=== PATIENT | female | born 1955 | race Caucasian/White ===

== ENCOUNTER 2017-07-19 06:45 | Inpatient (IN) | payer SELFPAY ==
[~2017-07-19] VITALS: Ht 160 cm; Wt 43.0 kg
[2017-07-19] VITALS (13 sets, daily range): BP systolic 107–161; BP diastolic 55–85; PULSE 62–149; RESP 16–20; TEMP 96.5–98; O2SAT 91–99
[~2017-07-19 06:45] MED LIST: ALBU6.7H INH; CIPR500T4 PO; PERM5CRE TOP; PRED20 PO
[2017-07-19] MEDS ORDERED: VENTAER INH (07:46)
--- NOTE | 2017-07-19 07:48 | PD ---
HPI Chief Complaint: Cold / Flu Symptoms Time Seen by Provider: 07:45 Travel History International Travel<30 days: No Contact w/Intl Traveler<30days: No Traveled to known affect area: No History of Present Illness HPI This patient complains of cough. She's had it for a solid month. She does have a chronic baseline smoker's cough but this is more pronounced. Sometimes brings up phlegm. No fever. She is a pack-a-day smoker for decades. Does not ever go to a doctor. One time during a coughing fit she strained her left groin area. No injury or fall. Severity is moderate PFSH Past Medical History Heart Rhythm Problems: Yes (PALPITATIONS SINCE AGE 18) Cardiac Catheterization: No Cardiovascular Problems: No High Cholesterol: Yes Congestive Heart Failure: No Diabetes: No Diminished Hearing: No Hypertension: No Musculoskeletal: Yes (ddd) Immunizations Current: No Myocardial Infarction: No Menopausal: Yes Tubal Ligation: Yes Past Surgical History Coronary Artery Bypass Graft: No Tonsillectomy: Yes Family History Family Myocardial Infarction: Yes Social History Alcohol Use: Yes (OCC) Tobacco Use: Yes (1 PPD) Substance Use: No Allergies-Medications (Allergen,Severity, Reaction): Coded Allergies: No Known Allergies (Verified Adverse Reaction, Unknown, 07/19/17) Reported Meds & Prescriptions Reported Meds & Active Scripts Active Ventolin Hfa 18 GM Inh (Albuterol Sulfate) 90 Mcg/Act Aer 2 Puff INH Q4-6H PRN Review of Systems General / Constitutional: No: Fever HENT: No: Headaches Cardiovascular: No: Chest Pain or Discomfort Respiratory: Positive: Cough Physical Exam Narrative GASTROINTESTINAL: Abdomen soft, non-tender, nondistended. Positive bowel sounds. No hepato-splenomegaly, or palpable masses. No guarding. RESPIRATORY: Respiratory effort unlabored, no retractions or use of accessory muscles. Breath sounds show occasional rhonchi but no wheezing Good range of motion of hips. There is some soft tissue left groin tenderness but no obvious hernia or mass or pulsatile lesion Data Data Last Documented VS Vital Signs Date Time Temp Pulse Resp B/P (MAP) Pulse Ox O2 Delivery O2 Flow Rate FiO2 07/19/17 11:05 76 18 155/66 (95) 96 Room Air 07/19/17 06:49 98.0 Orders Orders Chest, Pa & Lat (07/19/17 ) Electrocardiogram (07/19/17 ) Iv Access Insert/Monitor (07/19/17 08:09) Ondansetron Inj (Zofran Inj) (07/19/17 08:15) Morphine Inj (Morphine Inj) (07/19/17 08:15) Complete Blood Count With Diff (07/19/17 08:09) Basic Metabolic Panel (Bmp) (07/19/17 08:09) Ckmb (Isoenzyme) Profile (07/19/17 09:23) Troponin I (07/19/17 09:23) Prothrombin Time / Inr (Pt) (07/19/17 09:23) Act Partial Throm Time (Ptt) (07/19/17 09:23) Ct Pulmonary Angiogram (07/19/17 ) Aspirin (Aspirin) (07/19/17 09:30) Iohexol 350 Inj (Omnipaque 350 Inj) (07/19/17 09:57) Adenosine Inj (Adenocard Inj) (07/19/17 10:00) CKMB (07/19/17 08:38) CKMB% (07/19/17 08:38) Vital Signs (Adult) Q4H (07/19/17 11:10) Activity Bed Rest With Brp (07/19/17 11:10) Diet Heart Healthy (07/19/17 Lunch) Sodium Chlor 0.9% 1000 Ml Inj (Ns 1000 M (07/19/17 11:10) Sodium Chloride 0.9% Flush (Ns Flush) (07/19/17 11:15) Sodium Chloride 0.9% Flush (Ns Flush) (07/19/17 21:00) Acetaminophen (Tylenol) (07/19/17 11:15) Ondansetron Inj (Zofran Inj) (07/19/17 11:15) Basic Metabolic Panel (Bmp) (07/20/17 06:00) Complete Blood Count With Diff (07/20/17 06:00) Creatine Kinase (Cpk) (07/19/17 11:10) Creatine Kinase (Cpk) (07/19/17 17:10) Resp Oxygen Cruz C Titrat 1-4 L (07/19/17 ) Naloxone Inj (Narcan Inj) (07/19/17 11:15) Caddie / Telemetry ANA ROSA.Q8H (07/19/17 11:10) Admit Order (Ed Use Only) (07/19/17 11:18) Labs Laboratory Tests Test 07/19/17 08:38 White Blood Count 6.8 TH/MM3 Red Blood Count 4.41 MIL/MM3 Hemoglobin 14.6 GM/DL Hematocrit 43.1 % Mean Corpuscular Volume 97.8 FL Mean Corpuscular Hemoglobin 33.1 PG Mean Corpuscular Hemoglobin Concent 33.8 % Red Cell Distribution Width 13.0 % Platelet Count 201 TH/MM3 Mean Platelet Volume 8.1 FL Neutrophils (%) (Auto) 74.5 % Lymphocytes (%) (Auto) 18.8 % Monocytes (%) (Auto) 5.6 % Eosinophils (%) (Auto) 0.5 % Basophils (%) (Auto) 0.6 % Neutrophils # (Auto) 5.1 TH/MM3 Lymphocytes # (Auto) 1.3 TH/MM3 Monocytes # (Auto) 0.4 TH/MM3 Eosinophils # (Auto) 0.0 TH/MM3 Basophils # (Auto) 0.0 TH/MM3 CBC Comment DIFF FINAL Differential Comment Prothrombin Time 9.4 SEC Prothromb Time International Ratio 0.9 RATIO Activated Partial Thromboplast Time 23.8 SEC Blood Urea Nitrogen 6 MG/DL Creatinine 0.60 MG/DL Random Glucose 98 MG/DL Calcium Level 9.3 MG/DL Sodium Level 139 MEQ/L Potassium Level 3.8 MEQ/L Chloride Level 105 MEQ/L Carbon Dioxide Level 24.8 MEQ/L Anion Gap 9 MEQ/L Estimat Glomerular Filtration Rate 101 ML/MIN Total Creatine Kinase 114 U/L Creatine Kinase MB 1.6 NG/ML Troponin I LESS THAN 0.02 NG/ML MDM Medical Decision Making Medical Screen Exam Complete: Yes Emergency Medical Condition: Yes Medical Record Reviewed: Yes Differential Diagnosis Chronic bronchitis, pneumonia, URI, asthma, GERD Narrative Course I have reviewed the patient's electronic medical record. I reviewed her PA and lateral chest x-ray which is normal Patient was here in emergency room developed severe substernal chest pressure and started grabbing her chest. Her heart rate jumped up to 140 Extended cardiac monitoring revealed a narrow complex tachycardia which was regular I reviewed multiple EKGs which revealed narrow complex tachycardia I judged to be SVT I gave her 6 g IV adenosine She had fairly rapid conversion to a sinus rhythm At this point she remains in sinus rhythm at 80 CK and troponin are negative CBC normal Metabolic profile normal Given her chest pain and tachycardia and also underwent CT pulmonary angiogram which has ruled out PE I reviewed with the hospitalist will admit given her chest pain and arrhythmia Critical Care Narrative Aggregate critical care time was 33 minutes. Time to perform other separately billable procedures was not included in the critical care time. My time did not include minutes spent treating any other patients simultaneously or on activities that did not directly contribute to the patient's treatment. The services I provided to this patient were to treat and/or prevent clinically significant deterioration that could result in: Cardiac arrhythmia, cardiopulmonary arrest, myocardial damage I provided critical care services requiring my management, as noted below: Chart data review, documentation time, medication orders and management, vital sign assessments/reviewing monitor data, ordering and reviewing lab tests, ordering and interpreting/reviewing x-rays and diagnostic studies, care of the patient and discussion of the patient with the admitting physicians. Diagnosis Primary Impression: Chest pain Qualified Codes: R07.9 - Chest pain, unspecified Additional Impression: SVT (supraventricular tachycardia) Admitting Information Admitting Physician Requests: Admit Scripts Albuterol 18 GM Inh (Ventolin Hfa 18 GM Inh) 90 Mcg/Act Aer 2 PUFF INH Q4-6H Y for SHORTNESS OF BREATH, #1 INHALER 0 Refills Prov: Alex Cameron MD 07/19/17 Alex Cameron MD Jul 19, 2017 07:48
--- NOTE | 2017-07-19 07:49 | RADRPT ---
EXAM DATE/TIME: 07/19/2017 07:17 [facility] COMPARISON: CHEST SINGLE AP, October 13, 2014, 10:42. INDICATIONS : Cough. MEDICAL HISTORY : Chronic Bronchitis SURGICAL HISTORY : None. ENCOUNTER: Initial ACUITY: 1 month PAIN SCORE: 4/10 LOCATION: Bilateral chest FINDINGS: The lungs are clear without infiltrate, nodule, or mass. There is no appreciable pleural effusion fo r technique. Heart and mediastinum are unremarkable. CONCLUSION: No acute cardiopulmonary disease. Ozzy Hollins MD on July 19, 2017 at 7:46 Board Certified Radiologist. This report was verified electronically.
[2017-07-19] MEDS ORDERED: MORPHINE SULFATE 4 MG/ML INJ IV PUSH ONE (08:15)
[2017-07-19] MEDS ORDERED: ONDANSETRON HCL 4 MG/2 ML VIAL IVP ONE (08:15)
[2017-07-19 08:43] LABS: AUTOMATED NEUTROPHIL # 5.1 TH/MM3 (1.8-7.7); BASOPHIL % 0.6 % (0.0-2.0); EOSINOPHIL % 0.5 % (0.0-4.0); HEMATOCRIT 43.1 % (35.0-46.0); HEMOGLOBIN 14.6 GM/DL (11.6-15.3); LYMPH % 18.8 % (9.0-44.0); LYMPHOCYTE # 1.3 TH/MM3 (1.0-4.8); MEAN CELL VOLUME 97.8 FL (80.0-100.0); MEAN CORPUSCULAR HEMOGLOBIN 33.1 PG (27.0-34.0); MEAN CORPUSCULAR HGB CONC 33.8 % (32.0-36.0); MEAN PLATELET VOLUME 8.1 FL (7.0-11.0); MONO % 5.6 % (0.0-8.0); MONOCYTE # 0.4 TH/MM3 (0-0.9); NEUT % 74.5 % (16.0-70.0); PLATELET COUNT 201 TH/MM3 (150-450); RED BLOOD COUNT 4.41 MIL/MM3 (4.00-5.30); WHITE BLOOD COUNT 6.8 TH/MM3 (4.0-11.0)
[2017-07-19 09:12] LABS: CALCIUM 9.3 MG/DL (8.5-10.1)
[2017-07-19 09:13] LABS: BICARBONATE 24.8 MEQ/L (21.0-32.0)
[2017-07-19 09:16] LABS: CREATININE 0.6 MG/DL (0.50-1.00)
[2017-07-19] MEDS ORDERED: ASPIRIN 325 MG TAB PO ONE (09:30)
[2017-07-19 09:56] LABS: INTERNATIONAL NORMALIZED RATIO 0.9 RATIO; PROTHROMBIN TIME - PATIENT 9.4 SEC (9.8-11.6)
[2017-07-19] MEDS ORDERED: IOHEXOL 350 MG/ML 10 ML VIAL (for RAD DIAG) IVCONTRAST ONE (09:57)
[2017-07-19] MEDS ORDERED: ADENOSINE IV SOLN 3 MG/ML 2 ML VIAL IV PUSH ONE (10:00)
[2017-07-19 10:02] LABS: TROPONIN I LESS THAN 0.02 NG/ML (0.02-0.05)
--- NOTE | 2017-07-19 10:09 | RADRPT ---
EXAM DATE/TIME: 07/19/2017 09:43 [facility] COMPARISON: No previous studies available for comparison. INDICATIONS : Shortness of breath, chest pain.Cough. IV CONTRAST: 75 cc Omnipaque 350 (iohexol) IV RADIATION DOSE: 4.38 CTDIvol (mGy) MEDICAL HISTORY : Hypercholesterolemia. Cardiovascular disease Smoker SURGICAL HISTORY : Tonsillectomy. Tubal ligation.Left hip ENCOUNTER: Initial ACUITY: 2 days PAIN SCALE: 4/10 LOCATION: Bilateral chest TECHNIQUE: Volumetric scanning of the chest was performed using a pulmonary embolism protocol MIP images were re constructed. Using automated exposure control and adjustment of the mA and/or kV according to patien t size, radiation dose was kept as low as reasonably achievable to obtain optimal diagnostic quality images. DICOM format image data is available electronically for review and comparison. Follow-up recommendations for detected pulmonary nodules are based at a minimum on nodule size and pa tient risk factors according to Fleischner Society Guidelines. FINDINGS: The lungs are clear without infiltrate, nodule, or mass except for areas of scarring particularly rig ht apex and left lower lobe posteromedially and COPD changes. There is no pleural effusion. No appr eciable pathological adenopathy is seen within the mediastinum. There is no evidence for PE for techn ique. CONCLUSION: There is no evidence for PE for technique. Ozzy Hollins MD on July 19, 2017 at 10:03 Board Certified Radiologist. This report was verified electronically.
[2017-07-19] MEDS: SODIUM CHLOR 0.9% 1000 ML INJ 1,000 ML IV SCH ×2 (11:10→21:06)
[2017-07-19] MEDS ORDERED: SODIUM CHLORIDE 0.9% FLUSH 10 ML FLUSH IV FLUSH PRN (11:15)
[2017-07-19] MEDS ORDERED: NALOXONE HCL 0.4 MG/ML AMP IV PUSH PRN (11:15)
[2017-07-19] MEDS ORDERED: ACETAMINOPHEN 325 MG TAB PO PRN (12:00)
--- NOTE | 2017-07-19 14:06 | HHI.HP ---
[facility] No Primary Care Physician Admission Diagnosis chest pain, SVT Diagnoses: (1) Paroxysmal supraventricular tachycardia Diagnosis: Principal (2) Cough Diagnosis: Principal Travel History International Travel<30 Days: No Contact w/Intl Traveler <30 Da: No Traveled to Known Affected Are: No History of Present Illness Written by Alex Goldsmith, acting as scribe for Dr. Claros on 07/19/17 at 13: 53. 62-year-old female with known history of chronic tobacco use, intermittent heart racing who presented to hospital because of one month history of uncontrolled and relentless cough. Patient states that she is tried everything from Robitussin, Mucinex, Delsym, generic cough medicines, antihistamines without any significant response. She states that she is had a rather irritating cough that she has had 2 leave work. There has been episodes where she coughs up phlegm and vomits. She states that she does feel warm but she has not taken her temperature. She has had chills with cold sweats. Patient indicates that she has coughed so much that she is experiencing pain in her right lower abdomen. It is worse whenever she tries to stand up or move and it is worse whenever she coughs. Because she could not get rid of the cough she came to emergency department for evaluation. Patient had workup done and at the end the workup she started feeling pressure on her chest. Patient's heart rate jumped to 140. ER physician noticed that did be narrow complex tachycardia in the patient was given 6 g of IV adenosine with rapid conversion to sinus rhythm. Patient indicates that she has episodes of this in the last time that she had it was 2 weeks ago. She states that usually she lays down in the discomfort goes away. There is been times where she has checked her pulse during these episodes and it was as high as 200. She indicates that is been taking longer for the discomfort go away. When the heart rate is controlled, the patient's chest pain is completely resolved. Review of Systems Constitutional: COMPLAINS OF: Weight loss (7 pounds in 2 weeks) Respiratory: COMPLAINS OF: Cough Cardiovascular: COMPLAINS OF: Chest pain, Palpitations Except as stated in HPI: all other systems reviewed are Neg Past Family Social History Past Medical History Chronic tobacco use Intermittent heart racing Past Surgical History Carpal tunnel Tubal ligation Left leg surgery Reported Medications Reported Meds & Active Scripts Active Ventolin Hfa 18 GM Inh (Albuterol Sulfate) 90 Mcg/Act Aer 2 Puff INH Q4-6H PRN Allergies: Coded Allergies: No Known Allergies (Verified Allergy, Unknown, 07/19/17) Family History Reviewed and patient states that mother had emphysema. She does not know what her father's history is. Both her mother and father are Social History Patient has been smoking 1 pack a cigarettes a day since she was 13 years old. Patient is alcohol occasionally. Denies any illicit drugs Physical Exam Vital Signs Vital Signs Date Time Temp Pulse Resp B/P (MAP) Pulse Ox O2 Delivery O2 Flow Rate FiO2 07/19/17 12:16 07/19/17 12:00 96.8 81 20 125/70 (88) 96 07/19/17 11:05 76 18 155/66 (95) 96 Room Air 07/19/17 10:14 85 16 142/84 (103) 97 Room Air 07/19/17 09:19 149 20 131/85 (100) 96 Room Air 07/19/17 06:49 98.0 84 18 161/73 (102) 96 Physical Exam GENERAL: Well-developed, cachectic, patient looks much older than she actually is. In no acute distress. alert and orientated HEENT: Head is normocephalic without any lesions or masses noted. Facial features are symmetric. Eyes: Pupils equal round reactive to light. Extraocular muscles are intact. Conjunctivae were clear. Oropharyngeal: Pharynx without any erythema edema. Tongue is midline without deviation. Buccal mucosa is moist without any masses or lesions NECK: Supple without any masses. Trachea midline no deviation. No JVD, no bruits are appreciated CARDIAC: Regular rhythm, regular rate. S1/S2 are heard. No murmurs gallops or rubs. LUNGS: Forced expiratory wheeze, no rhonchi or rales. No use of accessory muscles on inspiration or expiration. ABDOMEN: Soft, pain noted on direct palpation of left inguinal region. Nondistended. Bowel sounds heard in all 4 quadrants. No organomegaly or masses. Negative rebound, negative guarding EXTREMITIES: No edema, pulses are equal bilaterally. No cyanosis or clubbing NEUROLOGY: Mood and affect appear appropriate. Cranial nerves II through XII grossly intact. Muscle strength 5/5 in upper and lower extremities bilaterally. Deep tendon reflexes are 2+ in upper and lower extremities bilaterally. Laboratory Laboratory Tests Test 07/19/17 08:38 07/19/17 12:05 White Blood Count 6.8 Red Blood Count 4.41 Hemoglobin 14.6 Hematocrit 43.1 Mean Corpuscular Volume 97.8 Mean Corpuscular Hemoglobin 33.1 Mean Corpuscular Hemoglobin Concent 33.8 Red Cell Distribution Width 13.0 Platelet Count 201 Mean Platelet Volume 8.1 Neutrophils (%) (Auto) 74.5 Lymphocytes (%) (Auto) 18.8 Monocytes (%) (Auto) 5.6 Eosinophils (%) (Auto) 0.5 Basophils (%) (Auto) 0.6 Neutrophils # (Auto) 5.1 Lymphocytes # (Auto) 1.3 Monocytes # (Auto) 0.4 Eosinophils # (Auto) 0.0 Basophils # (Auto) 0.0 CBC Comment DIFF FINAL Differential Comment Prothrombin Time 9.4 Prothromb Time International Ratio 0.9 Activated Partial Thromboplast Time 23.8 Blood Urea Nitrogen 6 Creatinine 0.60 Random Glucose 98 Calcium Level 9.3 Sodium Level 139 Potassium Level 3.8 Chloride Level 105 Carbon Dioxide Level 24.8 Anion Gap 9 Estimat Glomerular Filtration Rate 101 Total Creatine Kinase 114 110 Creatine Kinase MB 1.6 Troponin I LESS THAN 0.02 Result Diagram: 07/19/17 0838 07/19/17 0838 Imaging Last Impressions Chest X-Ray 07/19/17 0000 Signed Impressions: Service Date/Time: Wednesday, July 19, 2017 07:17 - CONCLUSION: No acute cardiopulmonary disease. Ozzy Hollins MD CT Angiography 07/19/17 0000 Signed Impressions: Service Date/Time: Wednesday, July 19, 2017 09:43 - CONCLUSION: There is no evidence for PE for technique. Ozzy Hollins MD Capashutoshi VTE Risk Assessment Jessica VTE Risk Assessment: Mod/High Risk (score >= 2) Caprini Risk Assessment Model Point Value = 1 Point Value = 2 Point Value = 3 Point Value = 5 Age 41-60 Minor surgery BMI > 25 kg/m2 Swollen legs Varicose veins or History of unexplained or recurrent spontaneous Oral contraceptives or hormone replacement Sepsis (< 1 month) Serious lung disease, including pneumonia (< 1 month) Abnormal pulmonary function Acute myocardial infarction Congestive heart failure (< 1 month) History of inflammatory bowel disease Medical patient at bed rest Age 61-74 Arthroscopic surgery Major open surgery (> 45 min) Laparoscopic surgery (> 45 min) Malignancy Confined to bed (> 72 hours) Immobilizing plaster cast Central venous access Age >= 75 History of VTE Family history of VTE Factor V Leiden Prothrombin [id number] Lupus anticoagulant Anticardiolipin antibodies Elevated serum homocysteine Heparin-induced thrombocytopenia Other congenital or acquired thrombophilia Stroke (< 1 month) Elective arthroplasty Hip, pelvis, or leg fracture Acute spinal cord injury (< 1 month) Prophylaxis Regimen Total Risk Factor Score Risk Level Prophylaxis Regimen 0-1 Low Early ambulation 2 Moderate Order ONE of the following: *Sequential Compression Device (SCD) *Heparin 5000 units SQ BID 3-4 Higher Order ONE of the following medications: *Heparin 5000 units SQ TID *Enoxaparin/Lovenox 40 mg SQ daily (WT < 150 kg, CrCl > 30 mL/min) *Enoxaparin/Lovenox 30 mg SQ daily (WT < 150 kg, CrCl > 10-29 mL/min) *Enoxaparin/Lovenox 30 mg SQ BID (WT < 150 kg, CrCl > 30 mL/min) AND/OR *Sequential Compression Device (SCD) 5 or more Highest Order ONE of the following medications: *Heparin 5000 units SQ TID (Preferred with Epidurals) *Enoxaparin/Lovenox 40 mg SQ daily (WT < 150 kg, CrCl > 30 mL/min) *Enoxaparin/Lovenox 30 mg SQ daily (WT < 150 kg, CrCl > 10-29 mL/min) *Enoxaparin/Lovenox 30 mg SQ BID (WT < 150 kg, CrCl > 30 mL/min) AND *Sequential Compression Device (SCD) Assessment and Plan Assessment and Plan Paroxysmal supraventricular tachycardia Status post correction with adenosine 6 g IV in the emergency department Continue monitor telemetry Obtain echocardiogram Chronic cough Likely secondary to chronic bronchitis in a patient with severe emphysema Chest x-ray and CT do not indicate any acute abnormality. Does show COPD changes Start Augmentin Start prednisone Start Robitussin-AC, Tessalon Left lower abdominal pain/muscle strain Continue pain control We'll obtain noncontrast CT the abdomen and pelvis DVT prevention sequential compression devices Physician Certification 2 Midnight Certification Type: Admission for Inpatient Services Order for Inpatient Services The services are ordered in accordance with Medicare regulations or non- Medicare payer requirements, as applicable. In the case of services not specified as inpatient-only, they are appropriately provided as inpatient services in accordance with the 2-midnight benchmark. Estimated LOS (days): 2 days is the estimated time the patient will need to remain in the hospital, assuming treatment plan goals are met and no additional complications. Post-Hospital Plan: Not yet determined Medical Decision Making Impression and Plan This note was transcribed by carlos [[email or web address]]. I, Dr. Kayli Claros personally performed the history, physical exam, and medical decision making; and confirmed the accuracy of the information in the transcribed note. I did examine and perform H&P as above. Authenticated by Dr. Kayli Claros on 07/19/17 at 14:37. Alex Goldsmith Jul 19, 2017 14:06 Kayli Claros MD Jul 19, 2017 14:38
--- NOTE | 2017-07-19 14:12 | EKG ---
Date Performed: 07/19/2017 Time Performed: 08:00:41 PTAGE: 62 years EKG: PROBABLE SINUS TACHYCARDIA WITH FIRST DEGREE AV BLOCK Compared to previous tracing, heart r ate is higher. Would attempt repeat EKG at a slower heart rate to exclude atrial dysrhymia. MODERATE ST DEPRESSION ABNORMAL ECG PREVIOUS TRACING : 05/08/2009 00.28.36 DOCTOR: Néstor Souza Interpretating Date/Time 07/19/2017 14:10:55
[2017-07-19] MEDS ORDERED: ACETAMINOPHEN/HYDROcodone 325 MG/5 MG TAB PO PRN (14:15)
[2017-07-19] MEDS ORDERED: BENZONATATE 100 MG CAP PO PRN (14:15)
[2017-07-19] MEDS ORDERED: DIATRIZOATE MEGLUM/DIATRIZOATE SOD 9 ML CUP PO ONE (14:30)
[2017-07-19] MEDS: NICOTINE 21 MG/24 HR PATCH T-DERMAL SCH (15:51)
[2017-07-19] MEDS: AMOXICILLIN/CLAVULANATE K 875 MG TAB PO SCH ×2 (15:51→21:03)
[2017-07-19] MEDS: oxyCODONE/ACETAMINOPHEN 7.5 MG/325 MG TAB PO PRN ×2 (16:50→23:55)
[2017-07-19] MEDS: predniSONE 20 MG TAB PO SCH (16:50)
[2017-07-19] MEDS: ONDANSETRON HCL 4 MG/2 ML VIAL IVP PRN ×2 (16:52→23:55)
--- NOTE | 2017-07-19 17:39 | RADRPT ---
EXAM DATE/TIME: 07/19/2017 17:24 [facility] COMPARISON: No previous studies available for comparison. INDICATIONS : Left lower abdominal pain. ORAL CONTRAST: Prescribed oral contrast ingested. RADIATION DOSE: 5.29 CTDIvol (mGy) MEDICAL HISTORY : Hypercholesterolemia. Cardiovascular disease Smoker SURGICAL HISTORY : Tonsillectomy. Tubal ligation.Left hip ENCOUNTER: Initial ACUITY: 1 day PAIN SCALE: 5/10 LOCATION: Left lower quadrant TECHNIQUE: Volumetric scanning of the abdomen and pelvis was performed. Using automated exposure control and ad justment of the mA and/or kV according to patient size, radiation dose was kept as low as reasonably achievable to obtain optimal diagnostic quality images. DICOM format image data is available electro nically for review and comparison. FINDINGS: LOWER LUNGS: The visualized lower lungs are clear. LIVER: Homogeneous density. There is no dilation of the biliary tree. No calcified gallstones. 1 cm low-de nsity lesion lower right lobe. SPLEEN: Normal size without lesion. PANCREAS: Within normal limits. KIDNEYS: Normal in size and shape. There is no mass, stone, or hydronephrosis. ADRENAL GLANDS: Within normal limits. VASCULAR: There is no aortic aneurysm. Atherosclerotic disease. BOWEL/MESENTERY: Stomach is filled with debris and contrast. Diverticulosis of the sigmoid colon without diverticuliti s. There is no free intraperitoneal air or fluid. ABDOMINAL WALL: Within normal limits. RETROPERITONEUM: There is no lymphadenopathy. BLADDER: No wall thickening or mass. REPRODUCTIVE: Within normal limits. INGUINAL: There is no lymphadenopathy or hernia. MUSCULOSKELETAL: Within normal limits for patient age. CONCLUSION: 1. Diverticulosis without diverticulitis. 2. Hepatic low-density, likely benign. Fabiano Ribeiro MD on July 19, 2017 at 17:34 Board Certified Radiologist. This report was verified electronically.
[2017-07-19] MEDS: SODIUM CHLORIDE 0.9% FLUSH 10 ML FLUSH IV FLUSH SCH (20:57)
[2017-07-19] MEDS: guaiFENesin/CODEINE SYRUP 200 MG/20 MG/10 ML CUP PO PRN (23:50)
[2017-07-20] VITALS (10 sets, daily range): BP systolic 99–115; BP diastolic 55–68; PULSE 63–83; RESP 18–22; TEMP 96.3–97.3; O2SAT 92–95
[2017-07-20] MEDS: SODIUM CHLOR 0.9% 1000 ML INJ 1,000 ML IV SCH (06:36)
[2017-07-20] MEDS: oxyCODONE/ACETAMINOPHEN 7.5 MG/325 MG TAB PO PRN ×2 (06:36→16:49)
[2017-07-20] MEDS: guaiFENesin/CODEINE SYRUP 200 MG/20 MG/10 ML CUP PO PRN ×3 (06:36→22:48)
[2017-07-20 07:39] LABS: AUTOMATED NEUTROPHIL # 4.5 TH/MM3 (1.8-7.7); BASOPHIL % 0.3 % (0.0-2.0); EOSINOPHIL % 0.7 % (0.0-4.0); HEMATOCRIT 35.8 % (35.0-46.0); HEMOGLOBIN 11.8 GM/DL (11.6-15.3); LYMPH % 22.8 % (9.0-44.0); LYMPHOCYTE # 1.4 TH/MM3 (1.0-4.8); MEAN CELL VOLUME 99.2 FL (80.0-100.0); MEAN CORPUSCULAR HEMOGLOBIN 32.6 PG (27.0-34.0); MEAN CORPUSCULAR HGB CONC 32.9 % (32.0-36.0); MEAN PLATELET VOLUME 9.1 FL (7.0-11.0); MONO % 6.3 % (0.0-8.0); MONOCYTE # 0.4 TH/MM3 (0-0.9); NEUT % 69.9 % (16.0-70.0); PLATELET COUNT 187 TH/MM3 (150-450); RED BLOOD COUNT 3.61 MIL/MM3 (4.00-5.30); RED CELL DISTRIBUTION WIDTH 12.9 % (11.6-17.2); WHITE BLOOD COUNT 6.3 TH/MM3 (4.0-11.0)
[2017-07-20] MEDS: AMOXICILLIN/CLAVULANATE K 875 MG TAB PO SCH ×2 (07:55→21:42)
[2017-07-20] MEDS: predniSONE 20 MG TAB PO SCH ×3 (07:55→18:04)
[2017-07-20] MEDS: REMOVE OLD PATCH T-DERMAL SCH (07:56)
[2017-07-20] MEDS: NICOTINE 21 MG/24 HR PATCH T-DERMAL SCH (07:56)
[2017-07-20 08:07] LABS: BICARBONATE 26.3 MEQ/L (21.0-32.0); CALCIUM 8.1 MG/DL (8.5-10.1); CREATININE 0.53 MG/DL (0.50-1.00)
--- NOTE | 2017-07-20 09:12 | HHI.PR ---
Subjective Remarks The patient is a 62-year-old female with known chronic tobaccoism who has presented with bronchitis and had an episode of SVT while in the emergency room while coughing. Overnight she appears to have improved and her breathing however she still has fits of coughing. No further arrhythmias on telemetry. Abdominal pain is likely musculoskeletal as are no findings on imaging Objective Vitals Vital Signs Date Time Temp Pulse Resp B/P (MAP) Pulse Ox O2 Delivery O2 Flow Rate FiO2 07/20/17 08:00 96.6 64 20 115/68 (84) 94 07/20/17 07:57 18 07/20/17 04:00 96.3 70 18 110/55 (73) 93 07/20/17 00:00 96.8 75 18 99/55 (70) 92 07/19/17 20:00 96.5 64 18 107/55 (72) 91 07/19/17 19:57 69 07/19/17 19:25 93 21 07/19/17 18:24 65 17 110/72 (85) 07/19/17 18:00 62 117/62 (80) 99 07/19/17 16:32 72 07/19/17 16:00 97.3 67 20 122/70 (87) 96 07/19/17 13:55 96 21 07/19/17 12:16 07/19/17 12:00 96.8 81 20 125/70 (88) 96 07/19/17 11:05 76 18 155/66 (95) 96 Room Air 07/19/17 10:14 85 16 142/84 (103) 97 Room Air 07/19/17 09:19 149 20 131/85 (100) 96 Room Air I/O 07/19/17 07/19/17 07/19/17 07/20/17 07/20/17 07/20/17 07:00 15:00 23:00 07:00 15:00 23:00 Intake Total 120 ml 1155 ml 1659 ml Balance 120 ml 1155 ml 1659 ml Intake Oral 120 ml 500 ml 720 ml IV Total 655 ml 939 ml # Voids 5 4 Result Diagram: 07/20/17 0635 07/20/17 0635 Objective Remarks GENERAL: This is a thin female who appears much older than stated age, well- developed patient, in no apparent distress. CARDIOVASCULAR: Regular rate and rhythm without murmurs, gallops, or rubs. RESPIRATORY: Clear to auscultation. Breath sounds equal bilaterally. No wheezes , rales, or rhonchi. GASTROINTESTINAL: Abdomen soft, non-tender, nondistended. Normal active bowel sounds MUSCULOSKELETAL: Extremities without clubbing, cyanosis, or edema. NEURO: Alert & Oriented x4 to person, place, time, situation. Moves all ext x4 A/P Problem List: (1) Paroxysmal supraventricular tachycardia ICD Code: I47.1 - Supraventricular tachycardia Plan: No further episodes on telemetry Echocardiogram pending (2) Cough ICD Code: R05 - Cough Plan: Likely secondary to bronchitis, continue with supportive care, bronchodilators by nebulizer (3) Acute bronchitis ICD Code: J20.9 - Acute bronchitis, unspecified Plan: Wean steroids, nebulized bronchodilators, continue Augmentin Patient will need PFTs as an outpatient On smoking cessation encouraged Discharge Planning Likely discharge in a.m. pending echo and improvement of symptoms Kayli Claros MD Jul 20, 2017 09:12
[2017-07-20] MEDS ORDERED: RESP: ALBUTEROL 2.5 MG/IPRATROPIUM 0.5 MG NEB (PRN) NEB (09:15)
[2017-07-20] MEDS: ONDANSETRON HCL 4 MG/2 ML VIAL IVP PRN ×3 (09:45→22:48)
[2017-07-20] MEDS: SODIUM CHLORIDE 0.9% FLUSH 10 ML FLUSH IV FLUSH SCH ×2 (09:48→21:42)
[2017-07-20] MEDS ORDERED: INFLUENZA VIRUS VACCINE (QUADRIVALENT) 0.5 ML SYR IM ONE (10:00)
[2017-07-20] MEDS ORDERED: PNEUMOCOCCAL POLYVALENT INJ 25 MCG/0.5 ML SYR IM ONE (10:00)
--- NOTE | 2017-07-20 12:21 | EKG ---
Date Performed: 07/19/2017 Time Performed: 10:08:00 PTAGE: 62 years EKG: SINUS TACHYCARDIA POSSIBLE RIGHT ATRIAL ENLARGEMENT BORDERLINE RIGHT AXIS DEVIATION ABNORMA L RHYTHM ECG Since PREVIOUS TRACING , no significant change noted PREVIOUS TRACIN07/19/2017 08.00 DOCTOR: Néstor Souza Interpretating Date/Time 07/20/2017 12:21:13
[2017-07-20] MEDS: RESP: ALBUTEROL 2.5 MG/IPRATROPIUM 0.5 MG NEB (SCH) NEB ×2 (13:16→19:31)
[2017-07-20] MEDS ORDERED: BENZOCAINE 6 MG/MENTHOL 10 MG LOZENGE BUCCAL PRN (23:00)
[2017-07-20] MEDS ORDERED: DOCUSATE SODIUM 100 MG CAP PO ONE (23:00)
[2017-07-21] VITALS: BP 116/65; PULSE 79; RESP 17; TEMP 97.6; O2SAT 94
[2017-07-21 04:00] VITALS: BP 121/71; PULSE 81; RESP 18; TEMP 97.7; O2SAT 96
[2017-07-21] MEDS: RESP: ALBUTEROL 2.5 MG/IPRATROPIUM 0.5 MG NEB (SCH) NEB (07:25)
[2017-07-21] MEDS: oxyCODONE/ACETAMINOPHEN 7.5 MG/325 MG TAB PO PRN (07:31)
[2017-07-21 08:00] VITALS: BP 125/63; PULSE 75; RESP 12; TEMP 95.7; O2SAT 95
[2017-07-21] MEDS: SODIUM CHLORIDE 0.9% FLUSH 10 ML FLUSH IV FLUSH SCH (08:02)
[2017-07-21] MEDS: AMOXICILLIN/CLAVULANATE K 875 MG TAB PO SCH (08:02)
[2017-07-21] MEDS: predniSONE 20 MG TAB PO SCH (08:02)
[2017-07-21] MEDS ORDERED: DOCUSATE SODIUM 100 MG CAP PO SCH (09:00)
--- NOTE | 2017-07-21 09:00 | ECHRPT ---
Indication: SVT CONCLUSIONS Normal left ventricular size. Wall thickness is normal. The left ventricular systolic function is normal with an estimated ejection fraction in the range of 55-60%. Trace mitral valve regurgitation. A small left sided pleural effusion is noted. BP: / HR: Rhythm: MEASUREMENTS (Male / Female) Normal Values Technical Quality:Good 2D ECHO LV Diastolic Diameter PLAX 4.0 cm 4.2 - 5.9 / 3.9 - 5.3 cm LV Systolic Diameter PLAX 2.8 cm IVS Diastolic Thickness 0.7 cm 0.6 - 1.0 / 0.6 - 0.9 cm LVPW Diastolic Thickness 0.7 cm 0.6 - 1.0 / 0.6 - 0.9 cm LV Relative Wall Thickness 0.3 LVOT Diameter 1.5 cm LA Systolic Diameter LX 2.3 cm 3.0 - 4.0 / 2.7 - 3.8 cm M-MODE Aortic Root Diameter MM 2.1 cm AV Cusp Separation MM 1.5 cm DOPPLER AV Peak Velocity 137.0 cm/s AV Peak Gradient 7.5 mmHg LVOT Peak Velocity 112.0 cm/s LVOT Peak Gradient 5.0 mmHg AV Area Cont Eq pk 1.4 cm MV Area PHT 3.1 cm Mitral E Point Velocity 96.3 cm/s Mitral A Point Velocity 67.6 cm/s Mitral E to A Ratio 1.4 LV E' Lateral Velocity 10.9 cm/s Mitral E to LV E' Lateral Ratio 8.8 LV E' Septal Velocity 8.8 cm/s Mitral E to LV E' Septal Ratio 11.0 TR Peak Velocity 261.0 cm/s TR Peak Gradient 27.2 mmHg Right Atrial Pressure 10.0 mmHg Pulmonary Artery Systolic Pressu 37.2 mmHg Right Ventricular Systolic Press 37.2 mmHg PV Peak Velocity 99.1 cm/s PV Peak Gradient 3.9 mmHg FINDINGS LEFT VENTRICLE Normal left ventricular size. Wall thickness is normal. The left ventricular systolic function is normal with an estimated ejection fraction in the range of 55-60%. RIGHT VENTRICLE Normal right ventricular size and systolic function. LEFT ATRIUM The left atrial size is normal. RIGHT ATRIUM The right atrial size is normal. ATRIAL SEPTUM Normal atrial septal thickness without atrial level shunting by limited color doppler interrogation. AORTA The aortic root and proximal ascending aorta are normal in size on limited imaging. MITRAL VALVE Trace mitral valve regurgitation. AORTIC VALVE Trileaflet aortic valve. No aortic valve stenosis or regurgitation. TRICUSPID VALVE Structurally normal tricuspid valve. No tricuspid valve stenosis or regurgitation. PULMONARY VALVE No pulmonary valve regurgitation or stenosis. VESSELS The inferior vena cava is normal in size. PERICARDIUM A small left sided pleural effusion is noted. Néstor Souza MD (Electronically Signed) Final Date:21 July 2017 08:58
[2017-07-21] MEDS: NICOTINE 21 MG/24 HR PATCH T-DERMAL SCH (09:09)
[2017-07-21] MEDS: REMOVE OLD PATCH T-DERMAL SCH (09:09)
--- NOTE | 2017-07-21 09:38 | HHI.DS ---
Discharge Summary Admission Date Jul 19, 2017 at 11:20 Discharge Date: Jul 21, 2017 Admitting Diagnosis chest pain, SVT (1) Paroxysmal supraventricular tachycardia ICD Code: I47.1 - Supraventricular tachycardia (2) Cough ICD Code: R05 - Cough (3) Acute bronchitis ICD Code: J20.9 - Acute bronchitis, unspecified Procedures none Brief History - From Admission Written by Alex Goldsmith, acting as scribe for Dr. Claros on 07/19/17 at 13: 53. 62-year-old female with known history of chronic tobacco use, intermittent heart racing who presented to hospital because of one month history of uncontrolled and relentless cough. Patient states that she is tried everything from Robitussin, Mucinex, Delsym, generic cough medicines, antihistamines without any significant response. She states that she is had a rather irritating cough that she has had 2 leave work. There has been episodes where she coughs up phlegm and vomits. She states that she does feel warm but she has not taken her temperature. She has had chills with cold sweats. Patient indicates that she has coughed so much that she is experiencing pain in her right lower abdomen. It is worse whenever she tries to stand up or move and it is worse whenever she coughs. Because she could not get rid of the cough she came to emergency department for evaluation. Patient had workup done and at the end the workup she started feeling pressure on her chest. Patient's heart rate jumped to 140. ER physician noticed that did be narrow complex tachycardia in the patient was given 6 g of IV adenosine with rapid conversion to sinus rhythm. Patient indicates that she has episodes of this in the last time that she had it was 2 weeks ago. She states that usually she lays down in the discomfort goes away. There is been times where she has checked her pulse during these episodes and it was as high as 200. She indicates that is been taking longer for the discomfort go away. When the heart rate is controlled, the patient's chest pain is completely resolved. CBC/BMP: 07/20/17 0635 07/20/17 0635 Significant Findings Laboratory Tests Test 07/19/17 08:38 07/19/17 12:05 07/19/17 17:55 07/20/17 06:35 Neutrophils (%) (Auto) 74.5 % (16.0-70.0) Prothrombin Time 9.4 SEC (9.8-11.6) Activated Partial Thromboplast Time 23.8 SEC (24.3-30.1) Blood Urea Nitrogen 6 MG/DL (7-18) Troponin I LESS THAN 0.02 NG/ML Red Blood Count 3.61 MIL/MM3 (4.00-5.30) Calcium Level 8.1 MG/DL (8.5-10.1) Imaging Last Impressions Chest X-Ray 07/19/17 0000 Signed Impressions: Service Date/Time: Wednesday, July 19, 2017 07:17 - CONCLUSION: No acute cardiopulmonary disease. Ozzy Hollins MD CT Angiography 07/19/17 0000 Signed Impressions: Service Date/Time: Wednesday, July 19, 2017 09:43 - CONCLUSION: There is no evidence for PE for technique. Ozzy Hollins MD Abdomen/Pelvis CT 07/19/17 0000 Signed Impressions: Service Date/Time: Wednesday, July 19, 2017 17:24 - CONCLUSION: 1. Diverticulosis without diverticulitis. 2. Hepatic low-density, likely benign. Fabiano Ribeiro MD PE at Discharge GENERAL: This is a thin female who appears much older than stated age, well- developed patient, in no apparent distress. CARDIOVASCULAR: Regular rate and rhythm without murmurs, gallops, or rubs. RESPIRATORY: Clear to auscultation. Breath sounds equal bilaterally. No wheezes , rales, or rhonchi. GASTROINTESTINAL: Abdomen soft, non-tender, nondistended. Normal active bowel sounds MUSCULOSKELETAL: Extremities without clubbing, cyanosis, or edema. NEURO: Alert & Oriented x4 to person, place, time, situation. Moves all ext x4 Pt update on day of discharge Feels better. No events overnight. No palpitations, chest pain, sob, n/v/d/c. Denies fever or chills. Hospital Course (1) Paroxysmal supraventricular tachycardia ICD Code: I47.1 - Supraventricular tachycardia Plan: No further episodes on telemetry Echocardiogram (2) Cough ICD Code: R05 - Cough Plan: Likely secondary to bronchitis, continue with supportive care, bronchodilators by nebulizer (3) Acute bronchitis ICD Code: J20.9 - Acute bronchitis, unspecified Plan: Wean steroids, nebulized bronchodilators, continue Augmentin Patient will need PFTs as an outpatient On smoking cessation encouraged Pt Condition on Discharge: Stable Discharge Disposition: Discharge Home Discharge Time: > 30 minutes Discharge Instructions DIET: Follow Instructions for: Heart Healthy Diet Activities you can perform: Regular-No Restrictions Follow up Referrals: Cardiology - 1 Week PCP Follow-up - 2-3 Days New Medications: Lactobacillus Acidophilus (Lactinex) 1 Chew 1 TAB CHEW BID for Nutritional Supplement, #30 TAB 0 Refills Amoxicillin-Clavulanate (Amoxicillin-Clavulanate) 875-125 mg Tab 875 MG PO Q12HR for infection , #10 TAB not for use in CrCl <30 mL/minute Benzonatate (Tessalon Perles) 100 Mg Cap 100 MG PO TID PRN for cougn not controlled with Jluis, #20 CAP Nicotine (Eq Nicotine) 21 Mg/24 Hour Dis 1 PATCH T-DERMAL DAILY for s,oking cessation , #30 PATCH Prednisone (Prednisone) 20 Mg Tab 20 MG PO BID for copd , #6 TAB [Benzocaine-Menthol Nicole] () 1 LOZENGE LOZG 1 LOZENGE BUCCAL UNSCH PRN for jeanette throat, #10 Continued Medications: Albuterol 18 GM Inh (Ventolin Hfa 18 GM Inh) 90 Mcg/Act Aer 2 PUFF INH Q4-6H PRN for SHORTNESS OF BREATH, #1 INHALER 0 Refills Jennifer Yang MD Jul 21, 2017 09:38
[2017-07-21 09:40] VITALS: RESP 18
[2017-07-21] MEDS ORDERED: BENZ100 PO (09:43)
[2017-07-21] MEDS ORDERED: AMOX875T2 PO (09:43)
[2017-07-21] MEDS ORDERED: PRED20 PO (09:43)
[2017-07-21] MEDS ORDERED: NICO21DI25 T-DERMAL (09:43)
[2017-07-21] MEDS ORDERED: LACTCHW3 CHEW (09:43)
[2017-07-21] MEDS ORDERED: [UNRECOGNIZED DRUG - OTHER] BUCCAL (09:44)
== END 2017-07-21 12:09 | disposition home or self-care (01) | DRG 202 ==
LOC: PHED 06:45 → PHEDA 11:20 → PH3A 12:08
PROVIDERS: ADMIT Hospitalist; ATTEND Hospitalist
DX: J20.9 Acute bronchitis, unspecified (principal); J44.0 Chronic obstructive pulmonary disease with (acute) lower respiratory infection; I47.1 Supraventricular tachycardia; Z68.1 Body mass index [BMI] 19.9 or less, adult; R63.4 Abnormal weight loss; S39.011A Strain of muscle, fascia and tendon of abdomen, initial encounter; F17.210 Nicotine dependence, cigarettes, uncomplicated; Z23 Encounter for immunization
CPT/HCPCS: 71046; 71275; 74176; 80048; 82550; 82552; 84484; 85025; 85610; 85730; 90471; 90686; 90732; 93005; 93306; 94640; 94664; 96374; 96375; G0008; G0009; J0153; J2270; J2405; J7030; J7512; Q2038; Q9963; Q9967

== ENCOUNTER 2017-11-29 17:58 | Emergency (ER) | payer SELFPAY ==
[~2017-11-29 17:58] MED LIST changes: -ALBU6.7H INH; +AMOX875T2 PO; +BENZ100 PO; -CIPR500T4 PO; +LACTCHW3 CHEW; +NICO21DI25 T-DERMAL; -PERM5CRE TOP; +VENTAER INH; +[UNRECOGNIZED DRUG - OTHER] BUCCAL
[2017-11-29 18:01] VITALS: BP 147/69; PULSE 82; RESP 20; TEMP 98; O2SAT 96
[2017-11-29 18:17] VITALS: O2SAT 97
[2017-11-29 18:30] LABS: AUTOMATED NEUTROPHIL # 6.2 TH/MM3 (1.8-7.7); BASOPHIL % 0.5 % (0.0-2.0); EOSINOPHIL % 0.1 % (0.0-4.0); HEMATOCRIT 35.8 % (35.0-46.0); HEMOGLOBIN 12.2 GM/DL (11.6-15.3); LYMPH % 12.2 % (9.0-44.0); LYMPHOCYTE # 0.9 TH/MM3 (1.0-4.8); MEAN CELL VOLUME 98.3 FL (80.0-100.0); MEAN CORPUSCULAR HEMOGLOBIN 33.4 PG (27.0-34.0); MEAN CORPUSCULAR HGB CONC 33.9 % (32.0-36.0); MONO % 3.4 % (0.0-8.0); MONOCYTE # 0.3 TH/MM3 (0-0.9); NEUT % 83.8 % (16.0-70.0); PLATELET COUNT 219 TH/MM3 (150-450); RED BLOOD COUNT 3.64 MIL/MM3 (4.00-5.30); RED CELL DISTRIBUTION WIDTH 12.8 % (11.6-17.2); WHITE BLOOD COUNT 7.4 TH/MM3 (4.0-11.0)
[2017-11-29 18:42] LABS: CHLORIDE 98 MEQ/L (98-107); SODIUM (NA) 134 MEQ/L (136-145)
[2017-11-29 18:45] LABS: CALCIUM 9.2 MG/DL (8.5-10.1)
[2017-11-29 18:46] LABS: ALBUMIN 3.9 GM/DL (3.4-5.0); BICARBONATE 26.3 MEQ/L (21.0-32.0); BLOOD UREA NITROGEN 12 MG/DL (7-18); GLUCOSE,RANDOM 109 MG/DL (74-106)
[2017-11-29 18:49] LABS: ALT (GPT) 21 U/L (10-53); AST (GOT) 17 U/L (15-37); CREATININE 0.59 MG/DL (0.50-1.00); GLOMERULAR FILTRATION RATE 103 ML/MIN (>89)
[2017-11-29 18:50] LABS: TOTAL BILIRUBIN ADULT 0.5 MG/DL (0.2-1.0); TOTAL PROTEIN 6.7 GM/DL (6.4-8.2)
[2017-11-29 18:51] LABS: ALKALINE PHOSPHATASE 65 U/L (45-117)
[2017-11-29] MEDS ORDERED: DICYCLOMINE HCL 20 MG/2 ML VIAL IM ONE (19:00)
[2017-11-29] MEDS ORDERED: SODIUM CHLOR 0.9% 1000 ML INJ 1,000 ML IV ONE (19:00)
[2017-11-29] MEDS ORDERED: ONDANSETRON ODT 4 MG TAB PO ONE (19:00)
[2017-11-29] MEDS ORDERED: SODIUM CHLORIDE 0.9% FLUSH 10 ML FLUSH IV FLUSH PRN (19:00)
--- NOTE | 2017-11-29 19:03 | PD ---
HPI Chief Complaint: GI Complaint Time Seen by Provider: 18:47 Travel History International Travel<30 days: No Contact w/Intl Traveler<30days: No Traveled to known affect area: No History of Present Illness HPI Patient presents with complaints of abdominal cramping for 1 week. Reports a slight change in urination and bowels. Reports that this morning she became nauseous and started vomiting. Unable to hold liquids down. Denies any fever. Denies any blood per emesis. Denies any blood per urine or bowel. Denies any sick contacts. No recent travel. No new foods. No camping. No new antibiotics. Pain is stabbing and sharp when cramping. 8 out of 10. Diffuse across her abdomen without any specific location. PFSH Past Medical History Arthritis: Yes Asthma: Yes Autoimmune Disease: No Heart Rhythm Problems: Yes (PALPITATIONS SINCE AGE 18) Cardiac Catheterization: No Cardiovascular Problems: No High Cholesterol: No Congestive Heart Failure: No Diabetes: No Diminished Hearing: No Endocrine: No Genitourinary: No Hypertension: No Immune Disorder: No Musculoskeletal: Yes Neurologic: No Reproductive: No Immunizations Current: No Myocardial Infarction: No Sleep Apnea: Yes Thyroid Disease: No Tetanus Vaccination: > 5 Years Influenza Vaccination: Yes ?: Not Menopausal: Yes Tubal Ligation: Yes Past Surgical History Cardiac Surgery: No Coronary Artery Bypass Graft: No Ear Surgery: No Endocrine Surgery: No Eye Surgery: No Gynecologic Surgery: Yes (tubal ligation ) Oral Surgery: No Tonsillectomy: Yes Other Surgery: Yes Family History Family Myocardial Infarction: Yes Social History Alcohol Use: Yes (OCC) Tobacco Use: Yes (1 PPD) Substance Use: No Allergies-Medications (Allergen,Severity, Reaction): Coded Allergies: acetaminophen (Verified Allergy, Severe, Nausea/Vomiting, 11/29/17) hydrocodone (Verified Allergy, Severe, Nausea/Vomiting, 11/29/17) Reported Meds & Prescriptions Reported Meds & Active Scripts Active Levsin (Hyoscyamine Sulfate) 0.125 Mg Tab 0.125 Mg PO Q4H Zofran (Ondansetron HCl) 4 Mg Tab 4 Mg PO Q6HR PRN Flagyl (Metronidazole) 500 Mg Tab 500 Mg PO BID 7 Days Cipro (Ciprofloxacin HCl) 500 Mg Tab 500 Mg PO BID 7 Days Ventolin Hfa 18 GM Inh (Albuterol Sulfate) 90 Mcg/Act Aer 2 Puff INH Q4-6H PRN Review of Systems General / Constitutional: No: Fever Eyes: No: Visual changes HENT: No: Headaches Cardiovascular: No: Chest Pain or Discomfort Respiratory: No: Shortness of Breath Gastrointestinal: Positive: Nausea, Vomiting, Abdominal Pain Genitourinary: No: Dysuria Musculoskeletal: No: Pain Skin: No Rash Neurologic: No: Weakness Psychiatric: No: Depression Endocrine: No: Polydipsia Hematologic/Lymphatic: No: Easy Bruising Physical Exam Narrative GENERAL: Well-nourished, well-developed patient. SKIN: Focused skin assessment warm/dry. HEAD: Normocephalic. EYES: No scleral icterus. No injection or drainage. NECK: Supple, trachea midline. No JVD or lymphadenopathy. CARDIOVASCULAR: Regular rate and rhythm without murmurs, gallops, or rubs. RESPIRATORY: Breath sounds equal bilaterally. No accessory muscle use. GASTROINTESTINAL: Abdomen soft, diffusely tender, nondistended. MUSCULOSKELETAL: No cyanosis, or edema. BACK: Nontender without obvious deformity. No CVA tenderness. Data Data Last Documented VS Vital Signs Date Time Temp Pulse Resp B/P (MAP) Pulse Ox O2 Delivery O2 Flow Rate FiO2 11/29/17 20:30 68 18 142/72 (95) 97 Room Air 11/29/17 19:15 97.6 Orders Orders Urinalysis - C+S If Indicated (11/29/17 18:00) Complete Blood Count With Diff (11/29/17 18:06) Comprehensive Metabolic Panel (11/29/17 18:06) Iv Access Insert/Monitor (11/29/17 18:06) Oxygen Administration (11/29/17 18:06) Oximetry (11/29/17 18:06) Lipase (11/29/17 18:06) Sodium Chlor 0.9% 1000 Ml Inj (Ns 1000 M (11/29/17 19:00) Ondansetron Odt (Zofran Odt) (11/29/17 19:00) Dicyclomine Inj (Bentyl Inj) (11/29/17 19:00) Lactic Acid (11/29/17 18:49) Ct Abd/Pel W Iv Contrast(Rout) (11/29/17 18:49) Ecg Monitoring (11/29/17 18:49) Sodium Chloride 0.9% Flush (Ns Flush) (11/29/17 19:00) Iohexol 350 Inj (Omnipaque 350 Inj) (11/29/17 19:27) Ondansetron Inj (Zofran Inj) (11/29/17 20:30) Labs Laboratory Tests Test 11/29/17 18:20 11/29/17 19:00 11/29/17 19:10 White Blood Count 7.4 TH/MM3 Red Blood Count 3.64 MIL/MM3 Hemoglobin 12.2 GM/DL Hematocrit 35.8 % Mean Corpuscular Volume 98.3 FL Mean Corpuscular Hemoglobin 33.4 PG Mean Corpuscular Hemoglobin Concent 33.9 % Red Cell Distribution Width 12.8 % Platelet Count 219 TH/MM3 Mean Platelet Volume 8.0 FL Neutrophils (%) (Auto) 83.8 % Lymphocytes (%) (Auto) 12.2 % Monocytes (%) (Auto) 3.4 % Eosinophils (%) (Auto) 0.1 % Basophils (%) (Auto) 0.5 % Neutrophils # (Auto) 6.2 TH/MM3 Lymphocytes # (Auto) 0.9 TH/MM3 Monocytes # (Auto) 0.3 TH/MM3 Eosinophils # (Auto) 0.0 TH/MM3 Basophils # (Auto) 0.0 TH/MM3 CBC Comment DIFF FINAL Differential Comment Blood Urea Nitrogen 12 MG/DL Creatinine 0.59 MG/DL Random Glucose 109 MG/DL Total Protein 6.7 GM/DL Albumin 3.9 GM/DL Calcium Level 9.2 MG/DL Alkaline Phosphatase 65 U/L Aspartate Amino Transf (AST/SGOT) 17 U/L Alanine Aminotransferase (ALT/SGPT) 21 U/L Total Bilirubin 0.5 MG/DL Sodium Level 134 MEQ/L Potassium Level 4.2 MEQ/L Chloride Level 98 MEQ/L Carbon Dioxide Level 26.3 MEQ/L Anion Gap 10 MEQ/L Estimat Glomerular Filtration Rate 103 ML/MIN Lipase 194 U/L Urine Color YELLOW Urine Turbidity CLEAR Urine pH 6.5 Urine Specific [place] LESS/EQUAL 1.005 Urine Protein NEG mg/dL Urine Glucose (UA) NEG mg/dL Urine Ketones TRACE mg/dL Urine Occult Blood SMALL Urine Nitrite NEG Urine Bilirubin NEG Urine Urobilinogen 0.2 MG/DL Urine Leukocyte Esterase NEG Urine Squamous Epithelial Cells 0-5 /hpf Microscopic Urinalysis Comment CULT NOT INDICATED Lactic Acid Level 1.0 mmol/L MDM Medical Decision Making Medical Screen Exam Complete: Yes Emergency Medical Condition: Yes Differential Diagnosis Colitis, gastroenteritis, diverticulitis Narrative Course Assessment plan discussed with patient at bedside. Patient received Zofran and Bentyl with improvement of symptoms. Tolerating p.o. challenge. Last 72 hours Impressions Abdomen/Pelvis CT 11/29/17 9759 Signed Impressions: CONCLUSION: 1. Focal wall thickening is noted involving the mid sigmoid colon with mild pe ricolic inflammation suggestive of acute diverticulitis. Clinical correlation i s recommended. 2. Free fluid within the cul-de-sac. 3. Two hepatic cysts. 4. Degenerative changes within lower lumbar spine. Diagnosis Primary Impression: Diverticulitis Additional Impression: Hematuria Qualified Codes: R31.1 - Benign essential microscopic hematuria Patient Instructions: General Instructions Additional Instructions: Encourage fluids and a cranberry supplement. Encouraged a high-fiber bland brat diet. Medications as prescribed. Follow-up with PCP. Return to the emergency room with any onset of new symptoms. Okay to provide work note. Med/Other Pt SpecificInfo: Prescription(s) given Scripts Hyoscyamine (Levsin) 0.125 Mg Tab 0.125 MG PO Q4H for Gastrointestinal disorders, #20 TAB 0 Refills Prov: Manish Mohan MD 11/29/17 Ondansetron (Zofran) 4 Mg Tab 4 MG PO Q6HR Y for NAUSEA OR VOMITING, #20 TAB 0 Refills Prov: Manish Mohan MD 11/29/17 Metronidazole (Flagyl) 500 Mg Tab 500 MG PO BID for Infection for 7 Days, #14 TAB 0 Refills Prov: Manish Mohan MD 11/29/17 Ciprofloxacin (Cipro) 500 Mg Tab 500 MG PO BID for Infection for 7 Days, #14 TAB 0 Refills Prov: Manish Mohan MD 11/29/17 Disposition: 01 DISCHARGE HOME Condition: Good Manish Mohan MD Nov 29, 2017 19:03
[2017-11-29 19:15] VITALS: BP 142/70; PULSE 70; RESP 18; TEMP 97.6; O2SAT 97
[2017-11-29 19:22] LABS: BILIRUBIN, URINE NEG (NEG); BLOOD, URINE SMALL (NEG); GLUCOSE,URINE NEG (NEG); KETONE, URINE TRACE mg/dL (NEG); NITRITE,URINE NEG (NEG); PH, URINE 6.5 (5.0-8.5); URINE COLOR YELLOW (YELLW/STRAW); URINE LEUKOCYTE ESTERASE NEG (NEG)
[2017-11-29] MEDS ORDERED: IOHEXOL 350 MG/ML 10 ML VIAL (for RAD DIAG) IVCONTRAST ONE (19:27)
--- NOTE | 2017-11-29 19:36 | RADRPT ---
EXAM DATE: 11/29/2017 7:29 PM EDT AGE/SEX: 62 years / Female INDICATIONS: Diffuse abdominal pain and cramping x 1 week. Nausea and vomiting today. CLINICAL DATA: This is the patient's initial encounter. Patient reports that signs and symptoms have been present for 1 week and indicates a pain score of 5/10. MEDICAL/SURGICAL HISTORY: None. Tubal ligation. Left hip surgery. ORAL CONTRAST: No oral contrast ingested. RADIATION DOSE: 4.44 CTDI (mGy) COMPARISON: No prior [place] exams available for comparison. TECHNIQUE: Multiple contiguous axial images were obtained through the abdomen and pelvis following b olus infusion of 85 ml Omnipaque 350 (iohexol) nonionic water-soluble contrast as a single exam dos e. No oral contrast ingested. Using automated exposure control and adjustment of the mA and/or kV ac cording to patient size, the radiation dose was kept as low as reasonably achievable to obtain optima l diagnostic quality images. FINDINGS: Lower Lungs: The visualized lower lungs are clear. Liver: Hepatic cysts are noted within the inferior aspect of the right lobe measuring 7 mm and the collins perior aspect of the right lobe measuring 4 mm. There is no dilation of the biliary tree. Spleen: Homogeneous density without enlargement. Pancreas: Unremarkable without mass or calcification. Kidneys: Normal in size and shape. No evidence of mass or hydronephrosis. Adrenal Glands: Unremarkable. Aorta: The aorta and proximal iliac vessels are grossly unremarkable without aneurysmal dilation. Bowel/Mesentery: Focal wall thickening is noted involving the mid sigmoid colon with mild pericolic inflammation suggestive of acute diverticulitis. Clinical correlation is recommended. Abdominal Wall: Intact. Retroperitoneum: No evidence of adenopathy in the retrocrural, para-aortic, or deep pelvic regions. Bladder: Contours are smooth. Reproductive Organs: No abnormal masses or calcifications seen. Some free fluid is noted within the cul-de-sac. Inguinal: The inguinal region is unremarkable without evidence of adenopathy. Bony Structures: Degenerative changes are noted within the lower lumbar spine. CONCLUSION: 1. Focal wall thickening is noted involving the mid sigmoid colon with mild pericolic inflammation s uggestive of acute diverticulitis. Clinical correlation is recommended. 2. Free fluid within the cul-de-sac. 3. Two hepatic cysts. 4. Degenerative changes within lower lumbar spine. Electronically signed by: Ryan Wynne MD 11/29/2017 7:35 PM EDT
[2017-11-29 19:56] LABS: SQUAMOUS EPITHELIAL CELL URINE 0-5 /hpf (0-5)
[2017-11-29] MEDS ORDERED: LEVS0.123 PO (20:06)
[2017-11-29] MEDS ORDERED: CIPR-9 PO (20:06)
[2017-11-29] MEDS ORDERED: ZOFR4TAB PO (20:06)
[2017-11-29] MEDS ORDERED: METR-1 PO (20:06)
[2017-11-29 20:30] VITALS: BP 142/72; PULSE 68; RESP 18; O2SAT 97
[2017-11-29] MEDS ORDERED: ONDANSETRON HCL 4 MG/2 ML VIAL IV PUSH ONE (20:30)
== END 2017-11-29 20:52 | disposition home or self-care (01) ==
LOC: PHED 17:58
DX: K57.92 Diverticulitis of intestine, part unspecified, without perforation or abscess without bleeding (principal); R31.29 Other microscopic hematuria; J45.909 Unspecified asthma, uncomplicated; F17.200 Nicotine dependence, unspecified, uncomplicated
CPT/HCPCS: 74177; 80053; 81001; 83605; 83690; 85025; 96361; 96372; 96374; 99285; J0500; J2405; J7030; Q9967

== ENCOUNTER 2017-12-23 12:37 | Emergency (ER) | payer SELFPAY ==
[~2017-12-23] VITALS: Ht 160 cm; Wt 43.7 kg
[~2017-12-23 12:37] MED LIST changes: -AMOX875T2 PO; -BENZ100 PO; +CIPR-9 PO; -LACTCHW3 CHEW; +LEVS0.123 PO; +METR-1 PO; -NICO21DI25 T-DERMAL; -PRED20 PO; +ZOFR4TAB PO; -[UNRECOGNIZED DRUG - OTHER] BUCCAL
[2017-12-23 12:49] VITALS: BP 164/87; PULSE 74; RESP 16; TEMP 98; O2SAT 98
--- NOTE | 2017-12-23 13:22 | PD ---
HPI Chief Complaint: Skin Problem Time Seen by Provider: 12:56 Travel History International Travel<30 days: No Contact w/Intl Traveler<30days: No Traveled to known affect area: No History of Present Illness HPI 62-year-old female here with a "sore" to her left upper extremity present for 2 weeks. She reports the area started out as a small whitish patch of skin which has increased in size over the last 2 weeks. The area occasionally drains clear fluid. Denies fever chills. Reports the area is mildly tender. Symptom severity is mild. PFSH Past Medical History Arthritis: Yes Asthma: Yes Autoimmune Disease: No Heart Rhythm Problems: Yes (PALPITATIONS SINCE AGE 18) Cardiac Catheterization: No Cardiovascular Problems: No High Cholesterol: No Congestive Heart Failure: No Diabetes: No Diminished Hearing: No Diverticulitis: Yes Endocrine: No Genitourinary: No Hypertension: No Immune Disorder: No Musculoskeletal: Yes Neurologic: No Reproductive: No Immunizations Current: No Myocardial Infarction: No Sleep Apnea: Yes Thyroid Disease: No Influenza Vaccination: Yes ?: Not Menopausal: Yes Tubal Ligation: Yes Past Surgical History Cardiac Surgery: No Coronary Artery Bypass Graft: No Ear Surgery: No Endocrine Surgery: No Eye Surgery: No Gynecologic Surgery: Yes (tubal ligation ) Oral Surgery: No Tonsillectomy: Yes Other Surgery: Yes Family History Family Myocardial Infarction: Yes Social History Alcohol Use: Yes (OCC) Tobacco Use: Yes (1 PPD) Substance Use: No Allergies-Medications (Allergen,Severity, Reaction): Coded Allergies: acetaminophen (Verified Allergy, Severe, Nausea/Vomiting, 12/23/17) hydrocodone (Verified Allergy, Severe, Nausea/Vomiting, 12/23/17) Reported Meds & Prescriptions Reported Meds & Active Scripts Active No Active Prescriptions or Reported Medications Review of Systems Except as stated in HPI: all other systems reviewed are Neg General / Constitutional: No: Fever Eyes: No: Visual changes HENT: No: Headaches Cardiovascular: No: Chest Pain or Discomfort Respiratory: No: Shortness of Breath Gastrointestinal: No: Abdominal Pain Genitourinary: No: Dysuria Musculoskeletal: No: Pain Skin: Positive Lesions Neurologic: No: Weakness Physical Exam Narrative GENERAL: Alert and well-appearing 62-year-old female SKIN: 1 cm round raised lesion to the left arm lateral aspect of the humerus. The lesion has a central depression with a dry scab. No surrounding erythema. No drainage. HEAD: Normocephalic. EYES: No injection or drainage. NECK: Supple, trachea midline. No lymphadenopathy. CARDIOVASCULAR: Regular rate and rhythm RESPIRATORY: Breath sounds equal bilaterally. No accessory muscle use. GASTROINTESTINAL: Abdomen soft, non-tender, nondistended. MUSCULOSKELETAL: No cyanosis, or edema. Data Data Last Documented VS Vital Signs Date Time Temp Pulse Resp B/P (MAP) Pulse Ox O2 Delivery O2 Flow Rate FiO2 12/23/17 12:49 98.0 74 16 164/87 (112) 98 Orders Orders Mandatory Outpatient Referral (12/23/17 13:23) MDM Medical Decision Making Medical Screen Exam Complete: Yes Emergency Medical Condition: Yes Differential Diagnosis Basal cell carcinoma, seborrheic keratosis, squamous cell carcinoma Narrative Course 62-year-old female here with a skin lesion to the left arm. This does not appear infectious. This is consistent with basal cell carcinoma. This was discussed at length with patient. The importance of follow-up and biopsy was discussed. Patient does not have health insurance. A mandatory referral was discussed with case picker and patient. An appointment will be made for patient for follow-up with on-call plastic surgeon Dr. Narayanan. Diagnosis Primary Impression: Skin lesion Referrals: Agustin Stanford MD Termite Technician Plastic Surgeon Additional Instructions: It is very important that you follow-up to have the skin lesion biopsied. You were given a mandatory referral for follow-up with a surgeon. The hospital will contact you regarding this appointment If you have not been contacted within the week please call the hospital Return if you have new or worsening symptoms. Scripts No Active Prescriptions or Reported Meds Disposition: 01 DISCHARGE HOME Condition: Stable Becky Patrick Dec 23, 2017 13:22
== END 2017-12-23 13:42 | disposition home or self-care (01) ==
LOC: PHEFT 12:37
DX: L98.9 Disorder of the skin and subcutaneous tissue, unspecified (principal); F17.200 Nicotine dependence, unspecified, uncomplicated
CPT/HCPCS: 99281